=== PATIENT | female | born 1995 | race Caucasian/White ===

== ENCOUNTER 2022-03-20 16:00 | Emergency (ER) | payer OTHER ==
[2022-03-20 17:38] VITALS: BP 128/88; PULSE 89; RESP 20; TEMP 98.2; BMI 28.3
== END 2022-03-20 21:01 | disposition home or self-care (01) ==
LOC: JER 16:00
DX: H57.11 Ocular pain, right eye (principal); S09.90XA Unspecified injury of head, initial encounter; S20.211A Contusion of right front wall of thorax, initial encounter; S30.810A Abrasion of lower back and pelvis, initial encounter; M25.551 Pain in right hip; M25.562 Pain in left knee; Y07.03 Male partner, perpetrator of maltreatment and neglect
CPT/HCPCS: 70450-TC; 70486-TC; 72125-TC; 84703; 99285-25